=== PATIENT | male | born 1990 | race Hispanic/Latino ===

== ENCOUNTER 2022-06-08 13:14 | Emergency (ER) | payer OTHER, MEDICARE ==
[~2022-06-08] VITALS: Ht 177.8 cm; Wt 70.3 kg
[2022-06-08] MEDS ORDERED: IBU600 MG PO (18:46)
== END 2022-06-08 19:00 | disposition home or self-care (01) ==
LOC: ED 13:14
DX: M70.51 Other bursitis of knee, right knee (principal); Y99.0 Civilian activity done for income or pay
CPT/HCPCS: 73560; 99283-25